=== PATIENT | male | born 1950 | race Native Hawaiian/Other Pacific Islander ===

== ENCOUNTER 2021-11-05 08:04 | Outpatient (CLI) | payer OTHER ==
[~2021-11-05] VITALS: Ht 33 cm; Wt 0.0 kg
[2021-11-05 08:39] LABS: PARTIAL THROMBOPLASTIN TIME 25.5 SECONDS (24.5-33.6)
[2021-11-05 08:50] LABS: PLATELET COUNT 153 K/uL (142-355)
== END 2021-11-05 20:17 | disposition home or self-care (01) ==
LOC: CT 08:04
PROVIDERS: ATTEND Neurological Surgery
DX: M54.16 Radiculopathy, lumbar region (principal)
CPT/HCPCS: 36415; 85027; 85610; 85730; Q9963